=== PATIENT | male | born 1985 | race Caucasian/White ===

== ENCOUNTER 2020-08-25 16:26 | Observation (INO) | payer OTHER ==
[~2020-08-25] VITALS: Ht 193 cm; Wt 136.5 kg
[2020-08-25] MEDS ORDERED: LISINOPRIL20 MG PO (21:10)
[2020-08-26] MEDS ORDERED: HYDROCODON-ACE1 EAC2 PO (10:10)
[2020-08-26] MEDS ORDERED: COLACE100 MG PO (10:10)
--- NOTE | 2020-08-26 10:30 | NUR ---
INSTRUCTED PATIENT AND MOTHER MEDS SENT TO [facility]ARLY , EXPLAINED TAKE STOOL SOFTNERS WITH PAIN MEDS. EDUCATION GIVEN ON LAP APPENDECTOMY. VERBALIZED UNDERSTANDING CHRISTIANO LEVY R.N.
== END 2020-08-26 11:25 | disposition home or self-care (01) ==
LOC: M/S 16:26
PROVIDERS: ADMIT Surgery
PROC: 0DTJ4ZZ Resection of Appendix, Percutaneous Endoscopic Approach (ICD-10-PCS; principal; 2020-08-25 18:39)
DX: K35.30 Acute appendicitis with localized peritonitis, without perforation or gangrene (principal); I10 Essential (primary) hypertension; J30.9 Allergic rhinitis, unspecified; M54.5 Low back pain; M53.3 Sacrococcygeal disorders, not elsewhere classified; Z79.1 Long term (current) use of non-steroidal anti-inflammatories (NSAID); Z79.899 Other long term (current) drug therapy; Z20.822 Contact with and (suspected) exposure to COVID-19
CPT/HCPCS: 74176; 87635; G0378; G0379; J0690; J2001; J2250; J2270; J2405; J2543; J2704; J2710; J3010; J3480; J7120

== ENCOUNTER → 2020-08-25 | Outpatient (CLI) | payer OTHER ==
[~2020-08-25] MED LIST: COLACE100 MG PO; HYDROCODON-ACE1 EAC2 PO; LISINOPRIL20 MG PO
== END ==
LOC: KOH-I 11:30
DX: R10.31 Right lower quadrant pain (principal); K37 Unspecified appendicitis
CPT/HCPCS: 74176

== ENCOUNTER 2021-06-05 11:22 | Emergency (ER) | payer OTHER ==
[2021-06-05] MEDS ORDERED: NAPROSYN500 MG PO (12:53)
== END 2021-06-05 13:00 | disposition home or self-care (01) ==
LOC: ER1 11:22
DX: M70.32 Other bursitis of elbow, left elbow (principal); I10 Essential (primary) hypertension; Z90.49 Acquired absence of other specified parts of digestive tract
CPT/HCPCS: 73080; 96372; 99283; J1100; J1885